=== PATIENT | female | born 1945 | race Caucasian/White ===

== ENCOUNTER 2017-07-01 11:09 | Emergency (ER) | payer OTHER ==
[~2017-07-01] VITALS: Ht 157.5 cm; Wt 71.9 kg
[~2017-07-01 11:09] MED LIST: ANASTROZOLE1 MG PO; B COMPLETE1 EACH PO; BACTRIM,SEPT1 TABLET PO; CALCIUM 600+D31 EACH PO; COMPAZINE10 MG PO; ELAVIL10 MG PO; NEXIUM40 MG PO; ONCE DAILY1 EACH PO; PHAZYME ULTRA180 MG PO; SYNTHROID100 MCG PO; SYNTHROID88 MCG PO; VITAMIN B12-FO1 EACH PO; ZOCOR10 MG PO; ZOFRAN4 MG PO; ZYPREXA5 MG PO
[2017-07-01] MEDS ORDERED: MEDROL DOSEPAK4 MG PO (14:41)
[2017-07-01] MEDS ORDERED: FLEXERIL10 MG PO (14:41)
[2017-07-01 15:16] VITALS: BP 134/77
== END 2017-07-01 15:17 | disposition home or self-care (01) ==
LOC: EME 11:09
DX: M25.551 Pain in right hip (principal); M85.80 Other specified disorders of bone density and structure, unspecified site
CPT/HCPCS: 73502; 99281; 99284